=== PATIENT | male | born 1970 | race Caucasian/White ===

== ENCOUNTER 2017-08-02 18:45 | Emergency (ER) | payer BC, MEDICAID ==
--- NOTE | 2017-08-04 07:58 | CR ---
Right ankle: Four views of the right ankle were obtained. Comparison: No prior study. Small plantar spur is seen. Ankle mortise is symmetric. No fracture, dislocation or other bony abnormality is seen. Impression: 1. Incidental plantar spur. Nothing acute is appreciated on right ankle study. Diagnostic code #2
== END 2017-08-02 20:18 ==
LOC: JD.ED 18:45
DX: S86.011A Strain of right Achilles tendon, initial encounter (principal); X50.9XXA Other and unspecified overexertion or strenuous movements or postures, initial encounter
CPT/HCPCS: 73610-26-RT; 73610-RT; 99283

== ENCOUNTER 2023-08-05 20:54 | Emergency (ER) | payer OTHER ==
[2023-08-05] MEDS: Amoxicillin/Clavulanate K 875-125 MG Tab PO ONE (22:02)
== END 2023-08-05 22:07 | disposition home or self-care (01) ==
LOC: JD.ED 20:54
DX: K02.9 Dental caries, unspecified (principal); I10 Essential (primary) hypertension; E11.9 Type 2 diabetes mellitus without complications
CPT/HCPCS: 99282; A9270